=== PATIENT | female | born 1965 | race Caucasian/White ===

== ENCOUNTER 2022-04-17 18:44 | Emergency (ER) | payer BC, MEDICARE ==
[~2022-04-17] VITALS: Ht 172.7 cm; Wt 70.0 kg
[2022-04-17] MEDS ORDERED: ADV250INH INH (18:53)
[2022-04-17] MEDS ORDERED: PROAAER10 INH (18:53)
[2022-04-17] MEDS ORDERED: ADV100INH INH (22:22)
[2022-04-17] MEDS ORDERED: GABA-1171 PO ×2 (22:22)
[2022-04-17] MEDS ORDERED: MULTCHW14 PO (22:22)
[2022-04-17] MEDS ORDERED: DICY20TA20 PO (22:22)
[2022-04-17] MEDS ORDERED: PSEU120T19 PO (22:22)
[2022-04-17] MEDS ORDERED: HOME MED LIST COMPLETE! XX SCH (22:25)
[2022-04-17 22:54] VITALS: BP 155/67
[2022-04-18] MEDS ORDERED: NIRMATRELVIR/RITONAVIR CO-PACK (EMERGENCY USE AUTH) PO SCH ×2 (09:00)
== END 2022-04-17 22:55 | disposition home or self-care (01) ==
LOC: M ED 18:44
DX: U07.1 COVID-19 (principal); J45.909 Unspecified asthma, uncomplicated; F43.10 Post-traumatic stress disorder, unspecified; F84.0 Autistic disorder; F12.10 Cannabis abuse, uncomplicated

== ENCOUNTER 2024-04-19 08:58 | Emergency (ER) | payer BC, MEDICARE ==
[~2024-04-19] VITALS: Ht 172.7 cm; Wt 68.2 kg
[~2024-04-19 08:58] MED LIST changes: -HOLTER MONITOR XX
[2024-04-19 09:44] LABS: BASO % 0.5 % (0.0-1.0); EOS # 0.2 10^3/uL (0.0-0.5); EOS % 2.6 % (0.0-3.0); HEMATOCRIT 35.9 % (36.0-47.0); HEMOGLOBIN 12.6 g/dl (12.0-15.5); LYMPH % 34.6 % (24.0-44.0); MEAN CORPUSCULAR HEMOGLOBIN 31.4 pg (27.0-33.0); MEAN CORPUSCULAR HGB CONC 35.1 g/dl (32.0-36.5); MEAN CORPUSCULAR VOLUME 89.5 fl (80.0-96.0); MONO # 0.6 10^3/uL (0.0-0.8); MONO % 9.9 % (2.0-8.0); NEUTROPHILS # 3.1 10^3/uL (1.5-8.5); NEUTROPHILS % 52.2 % (36.0-66.0); PLATELET COUNT, AUTOMATED 193 10^3/uL (150-450); RED BLOOD COUNT 4.01 10^6/uL (4.00-5.40); WHITE BLOOD COUNT 5.9 10^3/uL (4.0-10.0)
[2024-04-19 10:05] LABS: LIPASE 34 U/L (12-53)
[2024-04-19 10:08] LABS: ALBUMIN 3.8 G/DL (3.2-5.2); ALKALINE PHOSPHATASE 70 U/L (46-116); ALT/SGPT 21 U/L (7.0-40); AST/SGOT 17 U/L (<34); BILIRUBIN,DIRECT 0.1 MG/DL (<0.4); BILIRUBIN,TOTAL 0.3 MG/DL (0.3-1.2); BLOOD UREA NITROGEN 16 MG/DL (9-23); CALCIUM LEVEL 8.9 MG/DL (8.3-10.6); CARBON DIOXIDE LEVEL 24 MMOL/L (20-31); CHLORIDE LEVEL 108 MMOL/L (98-107); CK-MB VALUE MASS < 1.0 NG/ML (<3.6); CREATININE FOR GFR 0.63 MG/DL (0.55-1.30); GLOMERULAR FILTRATION RATE > 60.0 (>45); GLUCOSE, FASTING 97 MG/DL (74-106); MAGNESIUM LEVEL 1.8 MG/DL (1.8-2.4); POTASSIUM SERUM 3.8 MMOL/L (3.5-5.1); SODIUM LEVEL 139 MMOL/L (136-145); TOTAL PROTEIN 6.6 G/DL (5.7-8.2)
[2024-04-19 10:09] LABS: FREE T4 1.18 NG/DL (0.89-1.76)
[2024-04-19 10:10] LABS: THYROID STIMULATING HORMONE 2.336 uIU/ML (0.55-4.78)
[2024-04-19 10:13] LABS: CPK CREATINE PHOSPHOKINASE 124 U/L (34-145)
[2024-04-19] MEDS ORDERED: ISOVUE-370 76% 100ML VIAL As Ordered ONE (10:34)
[2024-04-19 11:18] LABS: CK-MB VALUE MASS < 1.0 NG/ML (<3.6)
[2024-04-19 11:32] LABS: CPK CREATINE PHOSPHOKINASE 127 U/L (34-145); MB/CK RELATIVE INDEX 0.78 (< OR =4)
[2024-04-19 13:06] LABS: CK-MB VALUE MASS < 1.0 NG/ML (<3.6)
[2024-04-19 13:31] LABS: CPK CREATINE PHOSPHOKINASE 111 U/L (34-145)
[2024-04-19] MEDS ORDERED: HOLTER MONITOR XX (13:41)
[2024-04-19 14:09] VITALS: BP 139/79; TEMP 97.4
[2024-04-19 14:16] VITALS: O2SAT 99
== END 2024-04-19 14:23 | disposition home or self-care (01) ==
LOC: EDBD 08:58 → M ED 08:58
DX: R00.2 Palpitations (principal); J45.909 Unspecified asthma, uncomplicated; F43.10 Post-traumatic stress disorder, unspecified; F84.0 Autistic disorder; Z79.52 Long term (current) use of systemic steroids; Z79.899 Other long term (current) drug therapy
CPT/HCPCS: 36415; 71045; 71275; 80048; 80076; 82550; 82553; 83690; 83735; 84439; 84443; 84484; 85025; 93005; 93041; 94760; 99285; Q9967

== ENCOUNTER → 2024-04-19 | Outpatient (CLI) | payer BC, MEDICARE ==
[~2024-04-19] MED LIST: ADV100INH INH; ADV250INH INH; DICY20TA20 PO; GABA-1171 PO; HOLTER MONITOR XX; MULTCHW14 PO; PROAAER10 INH; PSEU120T19 PO
== END ==
LOC: M EKG 15:04
PROVIDERS: ATTEND Emergency Medicine
DX: R00.2 Palpitations (principal)